=== PATIENT | female | born 1940 | race African-American/Black ===

== ENCOUNTER 2025-05-25 12:41 | Emergency (ER) | payer OTHER ==
[~2025-05-25] VITALS: Ht 165.1 cm; Wt 81.0 kg
[2025-05-25 12:53] VITALS: O2SAT 99
[2025-05-25] MEDS: ACETAMINOPHEN 325MG TABLET PO ONE (14:30)
[2025-05-25] MEDS ORDERED: IBUP-2028 MT (16:54)
[2025-05-25] MEDS ORDERED: LIDO-53 TP (16:54)
[2025-05-25] MEDS ORDERED: METH-653 MT (16:54)
[2025-05-25 17:24] VITALS: BP 136/60; PULSE 71; RESP 18; TEMP 36.7; O2SAT 100
== END 2025-05-25 17:36 | disposition home or self-care (01) ==
LOC: ER 12:41
DX: T14.8XXA Other injury of unspecified body region, initial encounter (principal); M19.90 Unspecified osteoarthritis, unspecified site; E11.9 Type 2 diabetes mellitus without complications; I10 Essential (primary) hypertension; Z79.899 Other long term (current) drug therapy; Z90.710 Acquired absence of both cervix and uterus; Z90.49 Acquired absence of other specified parts of digestive tract; Z86.73 Personal history of transient ischemic attack (TIA), and cerebral infarction without residual deficits; V89.9XXA Person injured in unspecified vehicle accident, initial encounter; Y93.89 Activity, other specified; Y92.89 Other specified places as the place of occurrence of the external cause; Y99.8 Other external cause status
CPT/HCPCS: 71045; 72100; 72170; 73030; 73502; 99284